=== PATIENT | female | born 1950 | race Caucasian/White ===

== ENCOUNTER 2016-10-31 11:35 | Day surgery (SDC) | payer MEDICARE, OTHER ==
[~2016-10-31] VITALS: Ht 157.5 cm; Wt 57.0 kg
[~2016-10-31 11:35] MED LIST: ALBU8.5H2 INHALATION; AMIT150T PO; BUPR150T12 PO; BUSP15 PO; DULO20CA18 PO; FERR-83 PO; FLUT16SP NS; GABA300C PO; GABA600T2 PO; Lactated Ringer's 1,000 ML IV ONE; MIRA25TA PO; PANT40TA3 PO; SUCR1TAB30 PO
[2016-10-31] MEDS ORDERED: Propofol 10,000 mCg/mL 20 mL Inj ONE (11:36)
[2016-10-31 11:57] VITALS: BP 106/73; PULSE 100; RESP 16; O2SAT 98
[2016-10-31] MEDS ORDERED: AMIT150T PO (12:03)
[2016-10-31] MEDS ORDERED: Lactated Ringer's 1,000 ML IV SCH (12:26)
[2016-10-31] MEDS ORDERED: Ondansetron 2 mg/mL 2 mL Inj IVPUSH PRN (12:30)
[2016-10-31] MEDS ORDERED: MetoCLOpramide 5 mg/mL 2 mL Inj IVPUSH PRN (12:30)
[2016-10-31 12:41] VITALS: BP 122/79; PULSE 97; RESP 14; O2SAT 95
[2016-10-31 12:53] VITALS: BP 130/80; PULSE 94; RESP 12; O2SAT 95
[2016-10-31 12:56] VITALS: BP 132/78; PULSE 95; RESP 14; O2SAT 93
--- NOTE | 2016-10-31 14:19 | ENDO ---
[address] [address] ENDOSCOPY PROCEDURE PATIENT: SILAS JAIMES : 1950 MR#: [id number] ADMIT: 10/31/2016 JOB ID: [id number] DATE: 10/31/2016 PROCEDURE: Esophagogastroduodenoscopy. INDICATION: The patient with a history of a duodenal ulcer for which she was hospitalized in August of 2016. She presents for endoscopy today to document ulcer healing. Please see Dr. Anselmo Cosby's anesthesia report for details regarding ASA classification, Mallampati score and medications. INSTRUMENT USED: GIF H 180 J. PROCEDURE DETAILS: After informed consent was obtained, the patient was brought into the GI suite, where she was placed on oxygen via nasal cannula and monitored with continuous pulse oximeter, telemetry and blood pressure monitoring. A time-out was performed. Then, she was placed in the left lateral decubitus position. Medications were administered for sedation. A bite block was placed. The standard EGD scope was inserted through the bite block and advanced under direct visualization to second portion of duodenum without difficulty. FINDINGS: 1. Normal appearing duodenal bulb, first and second portion. No findings of previously seen ulcer were noted. 2. Normal appearing pylorus, antrum and gastric body. 3. Retroflexed views of the gastric body revealed a normal-appearing cardia and fundus. 4. Normal-appearing GE junction with a regular Z-line at 37 cm. 5. Normal appearing esophagus. IMPRESSION: Normal esophagogastroduodenoscopy examination to second portion of duodenum. RECOMMENDATION: Follow up with primary care provider. COMPLICATIONS: None. ESTIMATED BLOOD LOSS: 0.
--- NOTE | 2016-10-31 17:50 | PCM.ANEP2 ---
Post Anesthesia Evaluation ASA/CMS Post Anesthesia VS in Patient's Normal Range?: Yes Resp Stable; Airway Patent?: Yes CV Function & Hydration Stable: Yes Mental Status Recovered?: Yes Pain control Satisfactory?: Yes N/V Control Satisfactory?: Yes Anselmo Cosby MD Oct 31, 2016 17:50
--- NOTE | 2016-10-31 17:50 | PCM.HPANE ---
Patient Data Surgeon Admitting Provider: Attending Provider:Georges Cooper MD Primary Care Physician:Sanjuana Peraza Other Provider:Bertha Klein Anesthesia Reason for Visit ULCER Ht/WT & BMI Body Mass Index Allergies Coded Allergies: acetaminophen (Verified Allergy, Mild, headaches, 10/30/16) hydrocodone bitartrate (Verified Allergy, Mild, headaches, 10/30/16) Past Anesthesia History Anesthesia History: Denies:: Abnormal Airway, Anesthesia Reactions, Difficult Intubation, Fam Anesthesia Reaction, Fam Malignant Hypertherm, Malignant Hyperthermia Diabetes History Hx Diabetes?: No Type of Diabetes: Diet Controlled Glycemic Control: Diet Controlled MRSA MRSA: No Medications Active Scripts Pantoprazole DR 40 Mg Tablet.dr40 Mg PO BIDAC #90 Prov:Delfino Atkinson MD 09/25/16 Reported Medications Amitriptyline 150 Mg Suyfdy602 Mg PO HS Ref 0 10/31/16 Albuterol HFA (Proair HFA)8.5 Gm Hfa.aer.ad2 Puffs INHALATION Q4H #1 INHALER 10/30/16 Mirabegron ER (Myrbetriq)25 Mg Ytwmos69 Mg PO DAILY 10/30/16 Gabapentin 600 Mg Hgexdo976 Mg PO TID Ref 0 10/30/16 Fluticasone Propionate (Fluticasone Propionate Nasal)16 Gm [place].susp2 [place] NS BID #16 GM Ref 0 10/30/16 Bupropion ER 150 Mg Tablet.er150 Mg PO BID Ref 0 10/30/16 Discontinued Reported Medications Duloxetine 20 Mg Capsule.dr20 Mg PO DAILY Ref 0 10/30/16 Buspirone-Expunged Drug, Do Not Renew! 15 Mg Mnfact73 Mg PO BID 03/20/12 Gabapentin-Expunged Drug, Do Not Renew! (Neurontin-Expunged Drug, Do Not Renew!) 300 Mg Bteepfy550 Mg PO BID 03/20/12 Amitriptyline-Expunged Drug, Do Not Renew! 150 Mg Ivqtpy798 Mg PO DAILY 03/20/12 Discontinued Scripts Ferrous Sulfate 325 Mg Kneazd694 Mg PO TID #90 TABLET Ref 0 Prov:Delfino Atkinson MD 09/25/16 Sucralfate (Carafate)1 Gm Tablet1,000 Mg PO ACHS #90 TABLET Prov:Delfino Atkinson MD 09/25/16 History History of ENT Problems?: Yes HEENT History: Positive for:: Cataracts Dysphagia Hearing Problem Sinus Problem (battles with sinusitis) Denies:: Abnormal Airway Difficult Intubation Hx of Heart Problems?: Yes Cardiovascular History: Positive for:: Atrial Fibrillation Edema Hypertension Irregular Heartbeat Denies:: AICD Cardiac Surgery Chest Pain Congestive Heart Failure Heart Murmur Pacemaker Thrombophlebitis Valvular Heart Disease Hx of Respiratory Problem?: Yes Respiratory History: Positive for:: Asthma Dyspnea Pneumonia Denies:: COPD Chest Surgery Cough Emphysema Hemoptysis Oxygen Administration Tuberculosis Hx Neurologic Problems?: Yes Neurological History: Positive for:: CVA (TIA 3 months ago ) Dizziness Headaches Denies:: Alzheimer's Disease Dementia Multiple Sclerosis Parkinson's Disease Seizures Hx of GI Problems?: Yes Gastrointestinal History: Positive for:: Gastroesphageal Reflux Gastrointestinal Bleeding Heartburn Hiatal Hernia Rectal Bleeding Denies:: Cirrhosis Diverticulitis Hepatitis Hx of Problems?: Yes Genitourinary History: Positive for:: Kidney Stones (once, years ago) Urinary Tract Infection Denies:: HX of Hemodialysis HX of Peritoneal Dialysis: No Female Hx: Positive for:: Endometriosis Denies:: Currently Pelvic Inflammatory Problems with Breasts? Skin History: Denies:: History Skin Disorders? Hx Musculoskeletal Problems?: Yes Musculoskeletal History: Positive for:: Back Injury (back surgery 5 months ago ) Denies:: Degenerative Joint Joint Replacement Musculoskeletal Trauma Hx of Psycho/Social Problems?: Yes Psycho Social History: Positive for:: Anxiety Hx Depression Suicide Attempt (at least 5 years ago due to back pain) Denies:: Bipolar Disorder Hx Surgeries?: Yes (Back surgery 5 months ago) Hx Any Other Health Problems?: Yes Other History: Positive for:: Hospitalization (last year hospitalized for UTI) Denies:: Cancer Thyroid Disease History Blood Transfusions: Positive for:: Blood Transfusions Denies:: Blood Transfuse Reaction Hx Diabetes: No Hx Alcohol Use: NoHx Substance Use: No Smoking Status: Light Tobacco Smoker Have You Smoked inLast 12 mo: Yes Stop/Bang Risk Assessment Category Category 1A: Patient has history of documented sleep apnea, and HAS NOT received any narcotic, sedative or anesthesia administration during this stay. Category 1B: Patient has history of documented sleep apnea, and HAS received any narcotic , sedative or anesthesia administration during this stay Category 2: Patient has SUSPECTED Obstructive Sleep Apnea, and HAS received any narcotic , sedative or anesthesia administration during this stay. Category 3: Patient has SUSPECTED Obstructive Sleep Apnea and HAS NOT received narcotic, sedative or anesthesia administration during this stay. Category 4: Outpatient in Procedural Areas with known sleep apnea or who screen positive for High Risk via the STOP/BANG questionnaire. Exam Exam General Appearance: Alert, Oriented X3, Cooperative, No Acute Distress HEENT/AIRWAY: MP 2 Lungs: Clear to Auscultation, Normal Air Movement Heart: Exam Unremarkable, Regular Rate/Rhythm, No Murmurs/Rubs/Gallops Plan Impression Patient chart reviewed, patient interviewed and anesthestic plan with risks, benefits, and alternatives discussed, and informed consent obtained. NPO Status: > 8 hours ASA Physical Status: ASA3 Severe Disease Anesthetic Plan: MAC Bene/Risks/Altern/Consents: Yes HP Complete Prior to Induction: Yes Anselmo Cosby MD Oct 31, 2016 07:29
--- NOTE | 2016-10-31 17:50 | PCM.ANEP1 ---
Post Anesthesia Phase 1 PACU Phase 1 Assessment Vital Signs Vital Signs Date Time Temp Pulse Resp B/P Pulse Ox O2 Delivery O2 Flow Rate FiO2 10/31/16 12:56 95 14 132/78 93 Room Air 10/31/16 12:53 94 12 130/80 95 Nasal Cannula 2 10/31/16 12:41 36.6 97 14 122/79 95 Room Air 10/31/16 11:57 37.2 100 16 106/73 98 Room Air Anesthetic Administered: MAC Level of Alertness: Awake, talking BETTENCOURT's with Equal Strength: Yes Pain: No Nausea or Vomiting: No Oxygen Delivery: Room Air Lungs: Clear to Auscultation, Normal Air Movement Dermatome Level: Full Sensation Anselmo Cosby MD Oct 31, 2016 17:50
== END 2016-10-31 23:59 | disposition home or self-care (01) ==
LOC: END 11:35
PROVIDERS: ATTEND Internal Medicine Gastroenterology
DX: K26.3 Acute duodenal ulcer without hemorrhage or perforation (principal); Z09 Encounter for follow-up examination after completed treatment for conditions other than malignant neoplasm; K21.9 Gastro-esophageal reflux disease without esophagitis; J45.909 Unspecified asthma, uncomplicated
CPT/HCPCS: 43235; J7120